=== PATIENT | male | born 1970 | race Caucasian/White ===

== ENCOUNTER 2020-08-15 10:15 | Emergency (ER) | payer OTHER ==
[~2020-08-15] VITALS: Ht 172.7 cm; Wt 92.0 kg
[2020-08-15] MEDS ORDERED: HYDROCODONE/ACETAMINOPHEN 5/325MG TABLET PO STA (10:39)
[2020-08-15] MEDS ORDERED: CYCL5TAB MT (11:28)
[2020-08-15] MEDS ORDERED: IBUP-2030 MT (11:28)
[2020-08-15 12:00] VITALS: BP 136/78
== END 2020-08-15 12:10 | disposition home or self-care (01) ==
LOC: ER 10:15
DX: S76.012A Strain of muscle, fascia and tendon of left hip, initial encounter (principal); Y93.55 Activity, bike riding; Y93.89 Activity, other specified; Y92.89 Other specified places as the place of occurrence of the external cause; Y99.8 Other external cause status
CPT/HCPCS: 73502; 99283

== ENCOUNTER 2020-10-27 09:05 | Emergency (ER) | payer OTHER ==
[~2020-10-27] VITALS: Ht 172.7 cm; Wt 94.0 kg
[~2020-10-27 09:05] MED LIST: CYCL5TAB MT; IBUP-2030 MT
[2020-10-27] MEDS ORDERED: KETOROLAC 60MG/2ML VIAL IM ONE (09:30)
[2020-10-27] MEDS ORDERED: CYCLOBENZAPRINE 10MG TABLET PO ONE (09:30)
[2020-10-27 09:37] VITALS: BP 131/86
[2020-10-27] MEDS ORDERED: CYCL5TAB MT (10:14)
[2020-10-27] MEDS ORDERED: IBUP-2030 MT (10:14)
== END 2020-10-27 11:17 | disposition home or self-care (01) ==
LOC: ER 09:05
DX: S39.012A Strain of muscle, fascia and tendon of lower back, initial encounter (principal); X58.XXXA Exposure to other specified factors, initial encounter; Y93.89 Activity, other specified; Y92.89 Other specified places as the place of occurrence of the external cause; Y99.8 Other external cause status; Z79.899 Other long term (current) drug therapy
CPT/HCPCS: 96372; 99283; J1885

== ENCOUNTER 2022-02-27 10:39 | Emergency (ER) | payer OTHER ==
[~2022-02-27] VITALS: Ht 172.7 cm; Wt 91.0 kg
[2022-02-27 10:52] VITALS: BP 115/81
[2022-02-27] MEDS ORDERED: IBUPROFEN 400MG TABLET PO ONE (12:30)
[2022-02-27] MEDS ORDERED: ACETAMINOPHEN 325MG TABLET PO ONE (12:30)
[2022-02-27] MEDS ORDERED: METHOCARBAMOL 500MG TABLET PO ONE (12:30)
[2022-02-27] MEDS ORDERED: CYCL5TAB MT (13:14)
[2022-02-27] MEDS ORDERED: TOPUD MT (13:14)
[2022-02-27] MEDS ORDERED: GABA-532 MT (13:14)
== END 2022-02-27 13:45 | disposition home or self-care (01) ==
LOC: ER 10:39
DX: M54.32 Sciatica, left side (principal)
CPT/HCPCS: 99284